=== PATIENT | male | born 1980 | race Caucasian/White ===

== ENCOUNTER 2017-01-23 18:05 | Emergency (ER) | payer SELFPAY ==
[~2017-01-23 18:05] MED LIST: HYDR-3288 PO; TRAM50 PO; XARE10TA PO
[2017-01-23 18:07] VITALS: BP 116/72; PULSE 97; RESP 12; TEMP 100.4; O2SAT 99
[2017-01-23 18:50] LABS: AUTOMATED NEUTROPHIL # 10.2 TH/MM3 (1.8-7.7); BASOPHIL % 0.2 % (0.0-2.0); EOSINOPHIL # 0.1 TH/MM3 (0-0.4); EOSINOPHIL % 0.5 % (0.0-4.0); HEMATOCRIT 37.9 % (39.0-51.0); HEMO FLAGS DIFF FINAL; LYMPH % 7.3 % (9.0-44.0); LYMPHOCYTE # 0.9 TH/MM3 (1.0-4.8); MEAN CELL VOLUME 94.7 FL (80.0-100.0); MEAN CORPUSCULAR HEMOGLOBIN 33.3 PG (27.0-34.0); MEAN CORPUSCULAR HGB CONC 35.1 % (32.0-36.0); MONO % 6.7 % (0.0-8.0); NEUT % 85.3 % (16.0-70.0); PLATELET COUNT 158 TH/MM3 (150-450); RED CELL DISTRIBUTION WIDTH 13.3 % (11.6-17.2); WHITE BLOOD COUNT 11.9 TH/MM3 (4.0-11.0)
[2017-01-23 19:08] LABS: ANION GAP 3 MEQ/L (5-15); AST (GOT) 46 U/L (15-37); BICARBONATE 29.8 MEQ/L (21.0-32.0); BLOOD UREA NITROGEN 10 MG/DL (7-18); CHLORIDE 100 MEQ/L (98-107); GLOMERULAR FILTRATION RATE 92 ML/MIN (>89); POTASSIUM 3.7 MEQ/L (3.5-5.1); SODIUM (NA) 133 MEQ/L (136-145)
[2017-01-23 19:12] LABS: ALKALINE PHOSPHATASE 56 U/L (45-117); ALT (GPT) 91 U/L (12-78); TOTAL BILIRUBIN ADULT 0.8 MG/DL (0.2-1.0)
--- NOTE | 2017-01-23 19:17 | RADRPT ---
EXAM DATE/TIME: 01/23/2017 18:28 [place] COMPARISON: No previous studies available for comparison. INDICATIONS : Flu-like symptoms. Throat and chest pain. Short of breath. MEDICAL HISTORY : None. SURGICAL HISTORY : Left femur IM l[place]. ENCOUNTER: Initial ACUITY: 2 days PAIN SCORE: 6/10 LOCATION: middle chest FINDINGS: PA and lateral views of the chest demonstrate the lungs to be symmetrically aerated without evidence of mass, infiltrate or effusion. The cardiomediastinal contours are unremarkable. Osseous structure s are intact. CONCLUSION: No acute cardiopulmonary process. Sudhir Corea MD on January 23, 2017 at 19:14 Board Certified Radiologist. This report was verified electronically.
[2017-01-23] MEDS ORDERED: ACETAMINOPHEN 325 MG TAB PO ONE (21:30)
--- NOTE | 2017-01-23 21:31 | PD ---
HPI Chief Complaint: Cold / Flu Symptoms Time Seen by Provider: 21:10 Travel History International Travel<30 days: No Contact w/Intl Traveler<30days: No Traveled to known affect area: No History of Present Illness HPI Patient is a 36-year-old male presenting to the emergency room for evaluation of headache, chest congestion, cough, sore throat and chills. Patient states his symptoms started 3 days ago. He denies any nausea, vomiting, chest pain, shortness of breath. He also reports scattered scabbed lesions on his body. He states these have been there for a year. He denies any IV drug use, he denies any significant past medical history. He is a current daily tobacco user. Patient has not taken any [id number] medications to alleviate his symptoms. He states his headache is dull, frontal. He denies any visual changes, dizziness. PFSH Past Medical History ADHD: Yes Anxiety: Yes Cancer: No Cardiovascular Problems: No Diabetes: No Endocrine: No Genitourinary: Yes Immune Disorder: No Musculoskeletal: No Neurologic: No Psychiatric: No Reproductive: No Respiratory: No Past Surgical History Abdominal Surgery: No Cardiac Surgery: No Ear Surgery: No Endocrine Surgery: No Eye Surgery: No Genitourinary Surgery: No Gynecologic Surgery: No Oral Surgery: No Thoracic Surgery: No Other Surgery: Yes (I&D) Social History Alcohol Use: Yes (occasionally ) Tobacco Use: Yes (1/2 PPD) Substance Use: Yes (cocaine 2-3 days ago, ecstasy in past) Allergies-Medications (Allergen,Severity, Reaction): Coded Allergies: aspirin (Unverified Allergy, Severe, SWELLING, 10/11/16) ibuprofen (Unverified Allergy, Severe, SWELLING, 10/11/16) Reported Meds & Prescriptions Reported Meds & Active Scripts Active Mupirocin Topical (Mupirocin) 2 % Oint 1 Applic TOPICAL BID Keflex (Cephalexin) 500 Mg Cap 500 Mg PO Q12H 10 Days Ultram (Tramadol HCl) 50 Mg Tab 50-100 Mg PO Q6H PRN Reported Xarelto (Rivaroxaban) 10 Mg Tab 10 Mg PO DAILY [place] (Hydrocodone-Acetaminophen) 7.5-325 mg Tab 1 Tab PO Q4H PRN Review of Systems Except as stated in HPI: all other systems reviewed are Neg General / Constitutional: Positive: Chills HENT: Positive: Headaches, No: Neck Pain Cardiovascular: No: Chest Pain or Discomfort Respiratory: Positive: Cough, No: Shortness of Breath, Wheezing Gastrointestinal: No: Nausea, Vomiting, Abdominal Pain Musculoskeletal: Positive: Myalgias Neurologic: No: Weakness, Dizziness, Syncope, Focal Abnormalities Physical Exam Narrative GENERAL: Thin, well-developed, disheveled male. SKIN: Warm and dry. Scabbed lesions scattered over patient's body, no induration or exudate noted. HEAD: Atraumatic. Normocephalic. EYES: Pupils equal and round. No scleral icterus. No injection or drainage. ENT: No nasal bleeding or discharge. Mucous membranes pink and moist. Cobblestone appearance posterior pharynx. No tonsillar hypertrophy or exudates noted. NECK: Trachea midline. No JVD. CARDIOVASCULAR: Regular rate and rhythm. RESPIRATORY: No accessory muscle use. Clear to auscultation. Breath sounds equal bilaterally. GASTROINTESTINAL: Abdomen soft, non-tender, nondistended. Hepatic and splenic margins not palpable. MUSCULOSKELETAL: Extremities without clubbing, cyanosis, or edema. No obvious deformities. NEUROLOGICAL: Awake and alert. No obvious cranial nerve deficits. Motor grossly within normal limits. Five out of 5 muscle strength in the arms and legs. Normal speech. PSYCHIATRIC: Appropriate mood and affect; insight and judgment normal. Data Data Last Documented VS Vital Signs Date Time Temp Pulse Resp B/P (MAP) Pulse Ox O2 Delivery O2 Flow Rate FiO2 01/24/17 00:33 01/23/17 22:46 58 16 97 Room Air 01/23/17 18:07 100.4 Orders Orders Sepsis Workup Initiated (01/23/17 ) Complete Blood Count With Diff (01/23/17 18:14) Comprehensive Metabolic Panel (01/23/17 18:14) Lactic Acid Sepsis Protocol (01/23/17 18:14) Urinalysis - C+S If Indicated (01/23/17 18:14) Influenzae A/B Antigen (01/23/17 18:14) Blood Culture (01/23/17 18:14) Chest, Pa & Lat (01/23/17 18:14) Group A Rapid Strep Screen (01/23/17 21:19) Acetaminophen (Tylenol) (01/23/17 21:30) Vital Signs (Adult) TREE.Q4H (01/23/17 21:44) Vital Signs (01/23/17 21:44) Strep Culture (Group A) (01/23/17 21:40) Sodium Chlor 0.9% 1000 Ml Inj (Ns 1000 M (01/23/17 22:45) Cephalexin (Keflex) (01/23/17 23:15) Ed Discharge Order (01/23/17 23:08) Labs Laboratory Tests Test 01/23/17 18:25 01/23/17 22:30 White Blood Count 11.9 TH/MM3 Red Blood Count 4.00 MIL/MM3 Hemoglobin 13.3 GM/DL Hematocrit 37.9 % Mean Corpuscular Volume 94.7 FL Mean Corpuscular Hemoglobin 33.3 PG Mean Corpuscular Hemoglobin Concent 35.1 % Red Cell Distribution Width 13.3 % Platelet Count 158 TH/MM3 Mean Platelet Volume 8.5 FL Neutrophils (%) (Auto) 85.3 % Lymphocytes (%) (Auto) 7.3 % Monocytes (%) (Auto) 6.7 % Eosinophils (%) (Auto) 0.5 % Basophils (%) (Auto) 0.2 % Neutrophils # (Auto) 10.2 TH/MM3 Lymphocytes # (Auto) 0.9 TH/MM3 Monocytes # (Auto) 0.8 TH/MM3 Eosinophils # (Auto) 0.1 TH/MM3 Basophils # (Auto) 0.0 TH/MM3 CBC Comment DIFF FINAL Differential Comment Blood Urea Nitrogen 10 MG/DL Creatinine 0.94 MG/DL Random Glucose 115 MG/DL Total Protein 7.0 GM/DL Albumin 3.3 GM/DL Calcium Level 8.4 MG/DL Alkaline Phosphatase 56 U/L Aspartate Amino Transf (AST/SGOT) 46 U/L Alanine Aminotransferase (ALT/SGPT) 91 U/L Total Bilirubin 0.8 MG/DL Sodium Level 133 MEQ/L Potassium Level 3.7 MEQ/L Chloride Level 100 MEQ/L Carbon Dioxide Level 29.8 MEQ/L Anion Gap 3 MEQ/L Estimat Glomerular Filtration Rate 92 ML/MIN Lactic Acid Level 0.9 mmol/L Urine Color YELLOW Urine Turbidity CLEAR Urine pH 6.0 Urine Specific [place] 1.032 Urine Protein TRACE mg/dL Urine Glucose (UA) NEG mg/dL Urine Ketones TRACE mg/dL Urine Occult Blood NEG Urine Nitrite NEG Urine Bilirubin NEG Urine Urobilinogen 4.0 MG/DL Urine Leukocyte Esterase TRACE Urine RBC 4 /hpf Urine WBC 2 /hpf Urine Mucus MANY /lpf Microscopic Urinalysis Comment CULT NOT INDICATED MDM Medical Decision Making Medical Screen Exam Complete: Yes Emergency Medical Condition: Yes Medical Record Reviewed: Yes Interpretation(s) Vital Signs Date Time Temp Pulse Resp B/P (MAP) Pulse Ox O2 Delivery O2 Flow Rate FiO2 01/23/17 18:07 100.4 97 12 116/72 (87) 99 Differential Diagnosis Influenza versus pneumonia versus UTI versus strep versus other Narrative Course Patient is 36-year-old male presenting to emergency Department for evaluation of cold symptoms that started 3 days ago. Patient's vital signs are stable, initially it appeared that he had a low-grade temp, temp was reassessed when he was brought back at 99.4. Patient denied to me that he used any drugs but reported to the ER and that he uses cocaine and opiates. He denies injecting but states he snorts. Patient has scattered scabbed lesions on his body, there does not appear to be any infection, induration associated with these lesions. Chest x-ray shows no acute disease this was read by the radiologist. CBC with a white count of 11.9 with left shift Lactic acid 0.9, mild transaminitis noted. Sodium 133 Patient's urine appeared concentrated, Patient was given acetaminophen and 1 L of IV fluids. Strep is negative Urinalysis is unremarkable. Patient will be treated with Keflex and mupirocin ointment for skin lesions. He was given first dose in the emergency department. He is encouraged to avoid picking at lesions. He was encouraged to follow-up with his primary doctor, he can also return to emergency department for any new or worsening symptoms. Patient was encouraged to continue symptom management in regards to his viral upper respiratory infection. He verbalized understanding of instructions. Patient stable for discharge. Diagnosis Primary Impression: Viral syndrome Additional Impression: Skin lesion Referrals: [facility] Primary Care Physician Patient Instructions: General Instructions, Viral Syndrome (DC) Additional Instructions: Follow-up with your primary doctor or at the [facility] Complete full course of antibiotics as prescribed Apply topical ointment twice daily to affected lesions Increased fluid intake Continue symptom management Return to emergency department for any new or worsening symptoms Med/Other Pt SpecificInfo: Prescription(s) given Scripts Mupirocin Topical (Mupirocin Topical) 2 % Oint 1 APPLIC TOPICAL BID for Mgmt Bacterial Infection, #22 GM 0 Refills Prov: Lu Birmingham 01/23/17 Cephalexin (Keflex) 500 Mg Cap 500 MG PO Q12H for Infection for 10 Days, #20 CAP 0 Refills Prov: Lu [place] 01/23/17 Disposition: 01 DISCHARGE HOME Condition: Stable Lu Birmingham Jan 23, 2017 21:31
[2017-01-23] MEDS ORDERED: SODIUM CHLOR 0.9% 1000 ML INJ 1,000 ML IV ONE (22:45)
[2017-01-23 22:46] VITALS: BP 109/63; PULSE 58; RESP 16; O2SAT 97
[2017-01-23 23:01] LABS: BLOOD, URINE NEG (NEG); COMMENT (UR) CULT NOT INDICATED; CULTURE IF INDICATED CULT NOT INDICATED; GLUCOSE,URINE NEG (NEG); KETONE, URINE TRACE mg/dL (NEG); MUCUS URINE MANY /lpf (OCC); NITRITE,URINE NEG (NEG); URINE COLOR YELLOW (YELLW/STRAW)
[2017-01-23] MEDS ORDERED: CEPH-460 PO (23:03)
[2017-01-23] MEDS ORDERED: MUPI2OIN TOPICAL (23:03)
[2017-01-23] MEDS ORDERED: CEPHALEXIN MONOHYDRATE 500 MG CAP PO ONE (23:15)
== END 2017-01-24 00:34 | disposition home or self-care (01) ==
LOC: NEPE 18:05
DX: B34.9 Viral infection, unspecified (principal); L98.9 Disorder of the skin and subcutaneous tissue, unspecified; F90.9 Attention-deficit hyperactivity disorder, unspecified type; F41.9 Anxiety disorder, unspecified; F17.200 Nicotine dependence, unspecified, uncomplicated; Z79.899 Other long term (current) drug therapy; Z88.6 Allergy status to analgesic agent
CPT/HCPCS: 71020; 80053; 81001; 83605; 85025; 87040; 87081; 87804; 87880; 99284; J7030